=== PATIENT | male | born 1985 | race Caucasian/White ===

== ENCOUNTER 2023-04-02 13:17 | Emergency (ER) | payer OTHER, SELFPAY ==
[2023-04-02 13:34] VITALS: BP 139/80; PULSE 92; RESP 16; TEMP 37.1; O2SAT 100
--- NOTE | 2023-04-02 13:35 | ECG_ITS ---
Measurements Intervals [place] Rate: 76 P: 55 MD: 164 QRS: 51 QRSD: 123 T: 60 QT: 371 QTc: 418 Interpretive Statements SINUS RHYTHM RIGHT BUNDLE BRANCH BLOCK ABNORMAL ECG NO PREVIOUS ECG AVAILABLE FOR COMPARISON Electronically Signed On 04-02-2023 14:36:41 [employer] by Thomas Mckeon D.O.
--- NOTE | 2023-04-02 13:36 | ED.DIZZY ---
HPI - Dizziness General Chief Complaint: Dizziness Stated Complaint: Dizzy;Nausea;Chest tightness Source: patient Mode of arrival: ambulatory Limitations: no limitations History of Present Illness HPI Narrative: 38 y/o male presented for c/o dizziness today at 1100. States he took DayQuil and additional Tylenol at 0700 and has only eaten oatmeal today. He felt more lightheaded when standing up from sitting. [place] better when walking around. Endorses dry mouth, feeling shaking and heavy legs during the episode. Reports feeling better upon arrival. Pt reports over the past week sore throat, cough, and dizziness. Pt was seen at other urgent care yesterday for these symptoms and was told he tested negative for covid, flu and strep. Admits he has not had any caffeine for about 4 days, usually drinking up to 80 oz of coffee daily; and has not smoked cigarettes, usually 5 cigarettes a day. Denies chest pain, palpitations, shortness breath, wheezing, nausea, vomiting, diarrhea, fevers or chills. Reports history of anxiety. Denies cardiac problems or family hx. Related Data Allergies Allergy/AdvReac Type Severity Reaction Status Date / Time No Known Allergies Allergy Unverified 10/20/17 09:40 Review of Systems Review of Systems: CONSTITUTIONAL: Denies body aches, fever, chills, or sweats. EYES: Denies visual changes, redness, or discharge. ENT: reports rhinorrhea, congestion, sore throat, denies otalgia. CARDIOVASCULAR: Denies chest pain, palpitations, or edema. RESPIRATORY: Reports cough Denies dyspnea. GASTROINTESTINAL: Denies abdominal pain, nausea, vomiting, or diarrhea. GENITOURINARY: Denies dysuria or hematuria. SKIN: Denies rash, itching, or wounds. MUSCULOSKELETAL: Denies back pain, joint pain, or myalgia. NEUROLOGIC: Denies headache, numbness, tingling, or weakness. PSYCH: Reports anxiety. All systems reviewed & are unremarkable except as noted in HPI and below [facility] Past Medical History Medical History (Updated 04/02/23 @ 14:35 by Alecia Gold, TAMAAR) Anxiety Comments At time of signature, I have reviewed and agree with nursing past medical, surgical, social and family history unless otherwise noted. Please see nursing chart for further information. There is no relevant family history pertinent to the presenting complaint Exam Narrative: GENERAL: Well-appearing, and in no acute distress. HEAD: Normocephalic, atraumatic. EYES: EOMI. No redness or drainage. Conjunctivae normal. ENT: Mucous membranes pink and moist. No rhinorrhea. TMs normal bilaterally. Throat normal. Uvula midline. NECK: Normal AROM. Supple. No lymphadenopathy. CHEST: No respiratory distress. Clear to auscultation. HEART: Regular rate and rhythm. No murmur appreciated. Normal peripheral pulses. ABDOMEN: Soft, nontender, nondistended, normal active bowel sounds. MUSCULOSKELETAL: No bony tenderness. EXTREMITIES: Normal range of motion. No edema. SKIN: Warm, dry, no rash. Capillary refill normal. Normal skin turgor. NEURO: No focal deficits. Alert and oriented x3. Gait steady. PSYCH: Anxious, talkative Course Course Emergency Course: Patient is aware of diagnosis, understands and agrees to treatment plan. Anticipatory guidance given. Patient agrees to follow-up as directed and is aware of reasons to seek care at the emergency department. Portions of this record may have been created with voice recognition software Level of Care: Express Care Visit Vital Signs Vital signs: Vital Signs Temperature 98.8 F 04/02/23 13:34 Pulse Rate 92 04/02/23 13:34 Respiratory Rate 16 04/02/23 13:34 Blood Pressure 139/80 04/02/23 13:34 Pulse Oximetry 100 04/02/23 13:34 Temperature 98.8 F 04/02/23 13:34 Pulse Rate 75 04/02/23 13:48 Respiratory Rate 16 04/02/23 13:34 Blood Pressure 138/83 04/02/23 13:48 Pulse Oximetry 100 04/02/23 13:34 MDM - Dizziness MDM Narrative Medical decision making juno
[2023-04-02 13:47] VITALS: BP 138/80; PULSE 76
[2023-04-02 13:48] VITALS: BP 134/88; BP 138/83; PULSE 74; PULSE 75
== END 2023-04-02 14:44 | disposition home or self-care (01) ==
PROVIDERS: Emergency Provider Nurse Practitioner Family
DX: R42 Dizziness and giddiness (principal); I45.10 Unspecified right bundle-branch block
CPT/HCPCS: 93005; 99203; G0463

== ENCOUNTER 2024-05-07 08:43 | Emergency (ER) | payer OTHER, SELFPAY ==
--- NOTE | ~2024-05-07 | XR_ITS ---
EXAMINATION: XR abdomen/kub 1V DATE: 05/07/2024 09:56 INDICATION: Left flank pain. Suprapubic pain. TECHNIQUE: A supine view of the abdomen on 2 radiographs was obtained. COMPARISON: None. FINDINGS: There are no dilated loops of bowel. There is a small volume of stool in the colon. There i s no visible urolithiasis. IMPRESSION: 1. Normal bowel gas pattern. Reviewed, dictated and finalized at location [facility]. [facility]
[2024-05-07 09:09] VITALS: BP 125/88; PULSE 79; RESP 16; TEMP 36.6; O2SAT 99
--- NOTE | 2024-05-07 09:29 | ED_ITS ---
HPI - Male Genitourinary General Chief complaint: Urogenital-Male Stated complaint: Abdominal Pain/Nausea/Uti Symptoms Time Seen by Provider: 05/07/24 09:43 Source: patient and RN notes reviewed Mode of arrival: ambulatory Limitations: no limitations History of Present Illness HPI Narrative: 39-year-old male presents with concern for 2 day history of suprapubic pain, urine frequency, low back discomfort, nausea. He reports chills but denies fever. He denies history of kidney stones. Reports he has had a urinary tract infection in the past. He denies testicular swelling, redness, warmth. Reports mild testicular discomfort. Related Data Allergies Allergy/AdvReac Type Severity Reaction Status Date / Time No Known Allergies Allergy Verified 05/07/24 09:47 Review of Systems Review of Systems: CONSTITUTIONAL: Reports malaise, chills. Denies sweats or fever. CARDIOVASCULAR: Denies chest pain, palpitations, or edema. RESPIRATORY: Denies cough or dyspnea. GASTROINTESTINAL: Denies abdominal pain, vomiting, diarrhea. Reports suprapubic pain GENITOURINARY: Reports urine frequency. Denies dysuria, urgency. Reports flank pain. Denies hematuria. SKIN: Denies rash or itching. MUSCULOSKELETAL: Reports low back pain. Denies myalgia. All systems reviewed & are unremarkable except as noted in HPI and below [facility] Past Medical History Medical History (Updated 05/07/24 @ 10:02 by Nadya Dey NP) Anxiety Comments At time of signature, agree with nursing past medical, surgical, social and fami ly history. There is no relevant family history pertinent to the presenting complaint Exam Narrative: GENERAL: Well-appearing, well-nourished, and in no acute distress. HEAD: Normocephalic. EYES: PERRLA, conjunctivae clear. NECK: Supple. No lymphadenopathy CHEST: Clear to auscultation. No respiratory distress. HEART: Regular rate and rhythm. ABDOMEN: Soft, nontender upon palpation, nondistended, normal active bowel sounds, no palpable or pulsatile masses, no guarding. Left CVA tenderness SKIN: Warm, dry, no rash. NEURO: Alert and oriented x3. PSYCH: Normal mood and affect Course Course Emergency Course: I discussed likely diagnoses with the patient, including urinary tract infection, pyelonephritis, nephrolithiasis, prostatitis. Patient's x-ray is negative for nephrolithiasis, patient's urinalysis is normal. We will presumptively treat for prostatitis less strict instructions for ER or primary care follow-up. Patient is aware of diagnosis, understands and agrees to treatment plan. Anticipatory guidance given. Patient agrees to follow-up as directed and is aware of reasons to seek care at the emergency department. Portions of this record may have been created with voice recognition software Level of Care: [facility] Visit Vital Signs Vital signs: Vital Signs Temperature 97.9 F 05/07/24 09:09 Pulse Rate 79 05/07/24 09:09 Respiratory Rate 16 05/07/24 09:09 Blood Pressure 125/88 05/07/24 09:09 Pulse Oximetry 99 05/07/24 09:09 Temperature 97.9 F 05/07/24 09:09 Pulse Rate 79 05/07/24 09:09 Respiratory Rate 16 05/07/24 09:09 Blood Pressure 125/88 05/07/24 09:09 Pulse Oximetry 99 05/07/24 09:09 Reviewed. MDM - Male Genitourinary MDM Narrative Medical decision making narrative: I evaluated this patient in the [facility]. History is obtained from patient who is an independent historian and physical exam was performed.? Available medical records were reviewed. ? Exam findings and relevant testing show no acute concerns or changes; patient is non-toxic appearing and is in no distress. ? Differential diagnosis and treatment plan were discussed with the patient. Patient agrees with discussion and after shared medical decision making agrees with plan of care. All questions were answered to the patient's satisfaction. Patient is appropriate for outpatient treatment and follow-up. Critical Care Time Critical Care Time Critical Care Time: No Discharge Plan Discharge Clinical Impression: Acute prostatitis Patient Disposition: Home, Self-Care Condition: Stable Instructions: Antibiotic Form, Prostatitis (ED) Additional Instructions: 1) Please follow-up with your primary care doctor in the next 1-2 days. 2) If you have any worsening of symptoms or any other urgent concerns please go to the ER. 3) Please take medications as prescribed and continue taking your home medications as usual. 4) Please read and follow information included in discharge instructions. Patient Language: Tanzanian Prescriptions: New ciprofloxacin HCl 500 mg tablet 500 mg PO Q12H 7 Days Qty: 14 0RF Follow-up/Referrals: PHYSICIAN,NIPPING MACHINE OPERATOR [Primary Care Provider] - Time of Disposition: 10:04
[2024-05-07 09:59] LABS: EDUAAPPEAR Clear; EDUABILI Negative (Negative); EDUABLOOD Negative (Negative); EDUACOLOR1 Yellow; EDUAGLUCOSE Negative (Negative); EDUAKETONE Negative (Negative); EDUALEUKO Negative (Negative); EDUANITRATE Negative (Negative); EDUAPROTEIN Negative (Negative); EDUAUROBILI 0.2
== END 2024-05-07 13:06 | disposition home or self-care (01) ==
PROVIDERS: Emergency Provider Nurse Practitioner
DX: N41.0 Acute prostatitis (principal)
CPT/HCPCS: 74018; 81003; 99213; G0463

== ENCOUNTER 2024-06-07 11:45 | Outpatient (CLI) | payer OTHER, SELFPAY ==
--- NOTE | ~2024-06-07 | CT_ITS ---
Non-contrast CT scan of the Abdomen and Pelvis Clinical indication: Right flank pain Technique: 2.5 mm axial scans were obtained through the abdomen and pelvis without intravenous or or al contrast. Dose reduction technique was used on this scan by utilizing automated exposure control a nd iterative reconstruction technique. The dose-length product (DLP) was 428.13 mGy-cm. Findings: Images through the lung bases reveal no abnormalities. There is no evidence of renal or ureteral calculi. The kidneys and the ureters are nondilated. The liver, spleen, pancreas, gallbladder, and adrenals appear normal. There is no aortic aneurysm. There is no evidence of bowel obstruction. Images through the pelvis were performed. There is no evidence of ascites or lymphadenopathy. Urinary bladder unremarkable. No pelvic mass seen. No ascites. Impression: Unremarkable exam. Reviewed, dictated and finalized at [facility]. PAINT SHADER Impression: Unremarkable exam.
== END 2024-06-07 11:46 | disposition home or self-care (01) ==
LOC: MICIMG 11:46
PROVIDERS: PCP Nurse Practitioner Family; Visit Provider Nurse Practitioner Family
DX: R10.9 Unspecified abdominal pain (principal)
CPT/HCPCS: 74176